=== PATIENT | male | born 1955 | race African-American/Black ===

== ENCOUNTER 2017-09-18 01:57 | Inpatient (IN) | payer OTHER ==
[~2017-09-18] VITALS: Ht 188 cm; Wt 86.2 kg
[2017-09-18] MEDS ORDERED: CELEBREX200 M1 PO (08:15)
[2017-09-18] MEDS ORDERED: SINGULAIR10 M1 PO (08:16)
[2017-09-18] MEDS ORDERED: FLOVENT DISKU100 MCG IH (08:16)
[2017-09-18] MEDS ORDERED: HYDROCHLOROTHIA25 M1 PO (08:17)
--- NOTE | 2017-09-18 11:25 | Admission Core Measures ---
Acute Coronary Syndrome (CM) ACS Core Measures Acute Coronary Syndrome Diagnosis No Congestive Heart Failure (NEW) CHF Core Measures Congestive Heart Failure Diagnosis No Cerebrovascular Accident CVA Core Measures CVA/TIA Diagnosis No Venous Thromboembolism VTE Core Demetri (View Protocol) VTE Risk Factors Surgery No Mechanical VTE Prophylaxis d/t N/A MechProphylax Ordered No VTE Pharm Prophylaxis d/t NA PharmProphylax ordered Problem List As ranked by this Provider includes Assessment & Plan 1. Unilateral primary osteoarthritis, right hip HOME MEDS Home Med List Celecoxib (Celebrex) 200 MG CAPSULE 1 CAP PO BID ARTHRITIS (Reported) Hydrochlorothiazide 25 MG TABLET 1 TAB PO DAILY HYPERTENSION (Reported) Montelukast Sodium (Singulair) 10 MG TABLET 1 TAB PO DAILY ASTHMA (Reported)
[2017-09-18] MEDS ORDERED: COLACE100 M1 PO (11:27)
[2017-09-18] MEDS ORDERED: MIRALAX17 G1 PO (11:27)
[2017-09-18] MEDS ORDERED: PRILOSEC OTC20 M1 PO (11:27)
[2017-09-18] MEDS ORDERED: ASPIRIN EC81 M1 PO (11:27)
[2017-09-18] MEDS ORDERED: INDOMETHACIN25 M1 PO (11:27)
[2017-09-18] MEDS ORDERED: DILAUDID2 M1 PO (11:27)
--- NOTE | 2017-09-18 11:30 | Patient Discharge Instructions ---
Discharge Instructions General Discharge Information You were seen/treated for: Right hip pain related to unilateral primary osteoarthritis You had these procedures: Right total hip replacement Watch for these problems: Increasing pain despite the use of pain medication Increasing redness, warmth or swelling Drainage of any type from incision Inability to bear weight on operative leg Persistent nausea and vomiting Fever greater than 101.5 degrees Do not soak the wound: Yes No bath, but you may shower: Yes Other wound care: Please keep wound clean and dry. No ointments or lotions of any type on or near incision at any time. No exceptions. Your dressing will be changed by your nurse on the second day after your surgery. Daily dry dressing changes are recommended each day thereafter. Do not soak your wound in a bath at any time until otherwise indicated by your surgeon. You may shower, please dry wound immediately after shower with a clean towel. Special Instructions: Aspirin: You are taking this medication to help prevent blood clot formation. Please take with food to protect your stomach lining. Please take as directed. Constipation: Pain medication can cause constipation. Dr. Cortes has recommended that you take Colace and miralax each day. You may discontinue this medication if you develop loose stool or diarrhea. If you wish to continue this medication, it is available over the counter. If you are unable to move your bowels after several days, if you are unable to pass gas and are developing bloating, nausea, or vomiting as a result, please contact your doctor. Diet Continue normal diet: Yes Recommended Diet: Regular Activity Full Activity/No Limits: No Activity Self Limited: Yes Pounds, do NOT lift more than: 10 Acute Coronary Syndrome Inclusion Criteria At DC or during hospital stay patient has or had the following: ACS DIAGNOSIS No Discharge Core Measures Meds if any: Prescribed or Continued at Discharge Meds if any: NOT Prescribed or Continued at Discharge Congestive Heart Failure Inclusion Criteria At DC or during hospital stay patient has or had the following: CHF DIAGNOSIS No Discharge Core Measures Meds if any: Prescribed or Continued at Discharge Meds if any: NOT Prescribed or Continued at Discharge Cerebrovascular accident Inclusion Criteria At DC or during hospital stay patient has or had the following: CVA/TIA Diagnosis No Discharge Core Measures Meds if any: Prescribed or Continued at Discharge Meds if any: NOT Prescribed or Continued at Discharge Venous thromboembolism Inclusion Criteria VTE Diagnosis No VTE Type NONE VTE Confirmed by (Test) NONE Discharge Core Measures - Per Current guidelines, there needs to be overlap - treatment for the first 5 days of Warfarin therapy. - If discharged on Warfarin prior to 5 days of - overlap therapy, the patient will need to be - assessed for post discharge needs including - *Post discharge parental anticoagulation - *Warfarin and/or parental anticoagulation education - *Follow up date to check INR post discharge At least 5 days overlap therapy as Inpatient No Meds if any: Prescribed or Continued at Discharge Note: Overlap Therapy is Warfarin and Anticoagulant Meds if any: NOT Prescribed or Continued at Discharge
--- NOTE | 2017-09-18 11:32 | Surgical Discharge Summary ---
Visit Information Visit Dates Admission Date: 09/18/17 Discharge Date: 09/20/17 History of Present Illness Chief Complaint: Right hip pain related to unilateral primary osteoarthritis Medical History Isolation History: Standard Surgical History Pertinent Surgical History: non-contributory Review of Systems: See H&P Hospital Course Course Attending Physician: Phan Cortes MD Primary Care Physician: Jo CATALAN,[facility] Hospital Course: Patient was admitted to the hospital for an elective total joint replacement. The procedure was tolerated well and patient was transferred to a general surgical floor. Diet was advanced and tolerated. The patient was evaluated and treated by physical therapy. At the time of hospital discharge, the vital signs were stable, neurovascular status was intact, and pain was controlled with the use of oral pain medications. Complications: nONE Allergies: Coded Allergies: No Known Allergies (09/18/17) Disposition Summary Disposition Principal Diagnosis: Right hip pain related to unilateral primary osteoarthritis Additional Diagnosis: None Discharge Disposition: home health services Discharge Instructions General Discharge Information Code Status: Full Code Patient's Diet: Regular, advance as tolerated Patient's Activity: WBAT Follow-Up Instructions/Appts: Follow up with Dr. Cortes in 6 weeks from date of surgery. Please call office to arrange &/or confirm this appointment. Medications at Discharge Discharge Medications: Stop taking the following medications: Celecoxib (Celebrex) 200 MG CAPSULE ORAL TWICE DAILY Continue taking these medications: Montelukast Sodium (Singulair) 10 MG TABLET 1 Tablet ORAL DAILY Fluticasone Propionate (Flovent Diskus) 100 MCG BLST.W.DEV 1 Inhalation INHALATION Hydrochlorothiazide (Hydrochlorothiazide) 25 MG TABLET 1 Tablet ORAL DAILY Start taking the following new medications: Aspirin (Ecotrin*) 81 MG TABLET.DR 1 Tablet ORAL TWICE DAILY Qty = 60 No Refills Docusate Sodium (Colace) 100 MG CAPSULE 1 Capsule ORAL TWICE DAILY Qty = 14 No Refills Instructions: DISCONTINUE USE IF YOU DEVELOP LOOSE STOOL OR DIARRHEA Polyethylene Glycol 3350 (Miralax) 17 GRAM POWD.PACK 1 Packet ORAL DAILY Qty = 7 No Refills Instructions: dissolve in water, DISCONTINUE USE IF YOU DEVELOP LOOSE STOOL OR DIARRHEA Indomethacin (Indomethacin) 25 MG CAPSULE 1 Capsule ORAL THREE TIMES DAILY Qty = 30 No Refills Instructions: with food Omeprazole Magnesium (Prilosec Otc) 20 MG TABLET.DR 1 Tablet ORAL DAILY Qty = 30 No Refills Hydromorphone HCl (Dilaudid) 2 MG TABLET 1-2 Tablet ORAL EVERY 4-6 HOURS NEEDED as needed for PAIN Qty = 36 No Refills Copies To: Jo CATALAN,Ale Shaikh III
--- NOTE | 2017-09-18 13:42 | RADIOLOGY REPORT ---
EXAMINATION: XR HIP, RIGHT CLINICAL INFORMATION: 2 views right hip. COMPARISON: No relevant prior imaging. TECHNIQUE: Two views of the right hip. FINDINGS: There are expected postoperative changes of a recent right total hip arthroplasty. Hardware is grossly intact and there is no evidence of dislocation. A surgical drain is in place. IMPRESSION: Expected postoperative changes of a right total hip arthroplasty. No dislocation.
[2017-09-18 14:10] VITALS: BP 148/86
--- NOTE | 2017-09-18 14:26 | PN- Orthopedic ---
Subjective Subjective: see student note below Objective Vital Signs and I&Os see student note below Assessment/Plan Assessment/Plan see student note below Core Measures Venous Thromboembolism VTE Risk Factors Surgery No Mechanical VTE Prophylaxis d/t N/A MechProphylax Ordered No VTE Pharm Prophylaxis d/t NA PharmProphylax ordered
[2017-09-18 16:22] VITALS: BP 130/70
--- NOTE | 2017-09-18 16:46 | Operative Report ---
Operative/Inv Procedure Report Surgery Date: 09/18/17 Name of Procedure: Right total hip replacement Pre-Operative Diagnosis: Primary right hip DJD Post-Operative Diagnosis: Same Estimated Blood Loss: 400 Surgeon/Senior Maintenance Machinist: Sebastian CATALAN,Phan Deleon Anesthesia: block Operative/Procedure Note Note: Description of Procedure: The patient was taken to the operating room and positively identified. After induction of spinal anesthesia and administration of appropriate pre-operative antibiotics, the patient was positioned supine on the operating room table and all bony prominences were well padded. After performing a surgical timeout, the right lower extremity was prepped and draped in the usual sterile fashion. A direct anterior approach was made to the right hip. The incision was carried sharply through superficial soft tissues to the level of the fascia. Meticulous hemostasis was maintained with Bovie electocautery. The fascia over the tensor fascia jailyn muscle was opened sharply and the interval between the TFL and the sartorius was entered bluntly taking care to stay lateral to the lateral femoral cutaneous nerve. Retractors were placed around the femoral neck and the pericapsular fat was identified. The ascending branches of the lateral femoral circumflex vessels were identified and carefully coagulated. The pericapsular fat and anterior capsule were then resected. A napkin ring osteotomy was performed and the femoral head was removed without difficulty. Attention was then turned to the acetabulum. After appropriate placement of retractors, the acetabulum was exposed. Soft tissue was cleaned from the acetabular margin and notch. It was noted that there was a tremendous amount of necrotic type material that appeared to be remnants of the femoral head and acetabulum. There was hypertrophic synovium present. And granulation tissue were sent for microbiologic analysis. Overhanging osteophytes were removed and the teardrop was exposed. The acetabulum was quite deformed. The acetabulum was then sequentially reamed to accept a 66 mm Crewe Tritanium hemispherical shell. This was impacted into place in the appropriate position and multiple screws were used for supplemental fixation. It was then fit with a 36 mm Trident X3 zero degree polyethylene insert. Attention was then turned to the femur. After performing the appropriate ligament releases, the proximal femur was exposed. It was then sequentially broached to accept a size 5 Crewe Accolade 2 132 neck angle stem. This was trialed for leg length and stability. The trial component was removed and the final component was impacted into place. The trunnion was carefully cleaned and fit with a 36 mm, +5 Biolox delta ceramic femoral head. The hip was reduced and put through a full range of motion and found to be stable. The articular space was then irrigated with sterile saline. The periarticular soft tissues were infilitrated with Marcaine. The fascial layer was closed with interrupted #1 vicryl suture and the skin was re-approximated with interrupted 2 -0 vicryl. The skin was closed with a running 3-0 V-Lock suture. Steri-strips and a sterile dressing were applied. The patient was awakened and taken to the recovery room in satisfactory condition.
--- NOTE | 2017-09-18 16:51 | PN- Student ---
Zenaida Wilkinsh 09/18/17 1629: Subjective Subjective: POST OP CHECK Pain 6/10 right thigh superior to knee. Improved slightly with morphine administration. Ambulated around unit with PT. Nausea relieved with zofran, no vomiting. No chest pain, no shortness of breath, no calf pain. Has not urinated. No flatus or bowel movements. Objective Objective: Vitals: Temp: 97.6 oral = Tmax=Tcurrent Pulse 69 Respiratory Rate: 18 BP: 130/70 Pulse Ox: 98 on room air I/O's Not recorded Imaging: Hip Xray post op Expected postoperative changes of a right total hip arthroplasty. No dislocation. Labs: None Physical Exam general: no acute distress. alert and oriented to time and place Pulm: clear to auscultation bilaterally Cardio: S1,S2, RRR Abdomen: Softly distended. Positive bowel sounds. non tender. Extremities: 2+ Posterior tibialis and dorsalis pedis pulses right foot. Gross sensation intact. calves soft and non tender bilaterally. ALPS in place. Drain in place with serosanguinous discharge. Dressing intact with minimal serosanguinous discharge. Non tender around dressing. Right thigh non tender. Results Results: Microbiology 09/18 105 TRUNK: Culture & Sensitivity - CAN Cancelled: OE 09/18 105 TRUNK: Gram Stain - CAN Cancelled: OE 09/18 105 TRUNK/O.R.: Culture & Sensitivity - RECD 09/18 1052 TRUNK/O.R.: Gram Stain - RECD Assessment/Plan Assessment: 62 year old male POD 0 s/p total hip replacement. Doing well with some pain from surgery, but has been out of bed with PT. Plan: Weight bearing as tolerated Continue DVT prophylaxis Continue Morphine and or dilaudid and or Acetaminophen for PRN pain Continue Zofran and or phenergan for nausea Continue ABX prophylaxis Continue GI prophylaxis Continue home meds Discuss with preceptor Chikis Cha 09/18/17 9087: Assessment/Plan Plan: Agree w above.
[2017-09-18 17:57] VITALS: BP 136/70
[2017-09-18 20:12] VITALS: BP 136/64
[2017-09-18 21:37] VITALS: BP 124/60
[2017-09-19] VITALS (7 sets, daily range): BP systolic 120–140; BP diastolic 58–80
--- NOTE | 2017-09-19 07:29 | PN- Student ---
Zenaida Wilkinsh 09/19/17 0710: Subjective Subjective: 3/10 improved pain of Right thigh and hip. Pain medication helped. Feels pain if shifting leg. Out of bed with PT yesterday. Urinated 2 x since surgery. No bowel movements, no flatus. No abdominal pain. No nause or vomiting. No chest pain, no shortness of breath, no calf pain. Objective Objective: Vitals: Temp: 98.9 = T max=Tcurrent Pulse: 73 Respiratory: 18 BP: 124/58 Pulse Ox: 95 on room air I's/O's I: 480 oral, 525 IV 24 hours O: 600 urine 24 hours Imaging: None Labs: Pending Physical Exam: general: No acute distress. Alert and oriented to time and place Pulm: clear to auscultation bilaterally Cardio: s1,s2, RRR Abdomen: Soft, non distended. Postive bowel sounds. Non tender Extremities: 2+ dorsalis pedis and posterior tibialis pulses. Gross sensation intact bilaterally. 5+ motor strength with plantar/dorsiflexion bilaterally. Straight leg raise 3+ strength right and 5+ strenght left. hip and thigh non tender. No echymosis around dressing. dressing is intact with minimal serosanguinous discharge. Drain is in place with serosanguinous discharge. calves soft and nontender bilaterally. Assessment/Plan Assessment: 62 year old male POD1 s/p right total hip replacement. Doing well with improved pain in proportion to surgery and has been out of bed with PT. Plan: WBAT Out of bed with PT Morphine, dilaudid, IV acetaminophen PRN pain Zofran, Ondansetron Prn Nausea Indocin as ordered GI prophylaxis Continue home meds Plan for discharge Discuss with preceptor Merlene Leonard 09/19/17 1212: Assessment/Plan Assessment: Agree with student assessment Overnight hemovac output 140 cc, will continue to monitor throughout day, likely dc drain later. Pt c/o chills, has been afebrile, will continue to monitor Activity remains oob, wbat No dc to home today, consider tomorrow Will discuss poc with Dr. Cortes
[2017-09-19 08:26] LABS: ABSOLUTE BASOPHIL COUNT 0 /CUMM (0.0-0.2); ABSOLUTE EOSINOPHIL COUNT 0.1 /CUMM (0.0-0.7); ABSOLUTE LYMPH COUNT 0.7 /CUMM (1.2-3.4); ABSOLUTE MONOCYTE COUNT 0.6 /CUMM (0.10-0.60); BASOPHIL % 0.7 % (0.0-2.0); EOSINOPHIL % 2.1 % (0-5); GRANULOCYTE % 73.1 % (42.2-75.2); HEMATOCRIT 32.4 % (42-52); MEAN CORPUSCULAR HGB 28.6 PG (27.0-31.0); MEAN CORPUSCULAR VOLUME 86.9 FL (80.0-94.0); PLATELET COUNT 238 /CUMM (130-400); RBC DISTRIBUTION WIDTH 13.7 % (11.5-14.5); RED BLOOD CELL CT 3.73 /CUMM (4.70-6.10); WHITE BLOOD CELL COUNT 5.5 /CUMM (4.8-10.8)
[2017-09-20 06:58] VITALS: BP 118/70
--- NOTE | 2017-09-20 07:19 | PN- Student ---
Jsoue Wilkins 09/20/17 0703: Subjective Subjective: Right hip discomfort with movement. No pain at rest. Ambulated with PT yesterday. Passed flatus and had bowel movement. urinates frequently. No nausea, no vomiting. No chest pain, no shortness of breath, no calf pain. Complained of chills. Objective Objective: Vitals: Temp; 99.4 oral Pulse: 70 Respiratory: 18 BP: 118/70 Pulse Ox: 95 room air I/O's I: 220 oral 8hrs/ 760 oral 24hrs O: 20 drainage 8hrs/ 240 drainage 24hrs 0 urine 8hrs/1650 urine 24hrs Imaging: None Results Results: Laboratory Tests 09/19/17 0635: Anion Gap 7, Estimated GFR > 60, BUN/Creatinine Ratio 21.7, CBC w Diff NO MAN DIFF REQ, RBC 3.73 L, MCV 86.9, MCH 28.6, MCHC 33.0, RDW 13.7, MPV 8.0, Gran % 73.1, Lymphocytes % 12.6 L, Monocytes % 11.5 H, Eosinophils % 2.1, Basophils % 0.7, Absolute Granulocytes 4.0, Absolute Lymphocytes 0.7 L, Absolute Monocytes 0.6, Absolute Eosinophils 0.1, Absolute Basophils 0 Microbiology 09/18 1053 TRUNK: Culture & Sensitivity - CAN Cancelled: OE 09/18 1053 TRUNK: Gram Stain - CAN Cancelled: OE 09/18 1053 TRUNK/O.R.: Culture & Sensitivity - RES 09/18 1053 TRUNK/O.R.: Gram Stain - RES Assessment/Plan Assessment: 62 year old male POD2 s/p right total hip replacement. Doing well and out of bed with PT with reduced pain. Drain was pulled yesterday PM and dressing changed this AM. Plan: WBAT Out of bed with PT Morphine, dilaudid, acetaminophen PRN pain Zofran, ondansetron prn nausea GI prophylaxis Continue home meds Plan for discharge Discuss with preceptor Kamila Colin 09/20/17 3729: Assessment/Plan Plan: agree with above TOMER note dressing changed try milk of mag this morning continue PT. needs to clear 13 stairs for home (per pt) continue asa/indocin - dvt ppx d/c home with hhx today vs tomorrow pending him clearing stairs will d/w
[2017-09-20 08:23] LABS: ABSOLUTE BASOPHIL COUNT 0 /CUMM (0.0-0.2); ABSOLUTE EOSINOPHIL COUNT 0.2 /CUMM (0.0-0.7); ABSOLUTE GRANULOCYTE CT 4.4 /CUMM (1.4-6.5); ABSOLUTE MONOCYTE COUNT 0.8 /CUMM (0.10-0.60); BASOPHIL % 0.5 % (0.0-2.0); EOSINOPHIL % 2.4 % (0-5); GRANULOCYTE % 68.9 % (42.2-75.2); HEMATOCRIT 32.2 % (42-52); MEAN CORPUSCULAR HGB 29.2 PG (27.0-31.0); MEAN CORPUSCULAR HGB CONC 34.2 G/DL (33.0-37.0); MEAN CORPUSCULAR VOLUME 85.3 FL (80.0-94.0); MEAN PLATELET VOLUME 8.1 FL (7.4-10.4); PLATELET COUNT 240 /CUMM (130-400); RBC DISTRIBUTION WIDTH 13.3 % (11.5-14.5); RED BLOOD CELL CT 3.78 /CUMM (4.70-6.10); WHITE BLOOD CELL COUNT 6.4 /CUMM (4.8-10.8)
[2017-09-20 14:50] VITALS: BP 122/64
== END 2017-09-20 16:10 | disposition home health service (06) | DRG 470 ==
LOC: SDA 01:57 → ENRESERV 12:48 → ENTRNSPT 13:54 → EDTRNSPTSTS 13:55 → EDTRNSPT 14:01 → 2NA 14:05 → CMPTRNSPT 14:23 → ENPENDDIS 09-20 11:05 → 2NA 09-20 16:10
PROVIDERS: Nurse Practitioner
PROC: 0SR904A Replacement of Right Hip Joint with Ceramic on Polyethylene Synthetic Substitute, Uncemented, Open Approach (ICD-10-PCS; principal; 2017-09-18)
DX: M16.11 Unilateral primary osteoarthritis, right hip (principal); J45.40 Moderate persistent asthma, uncomplicated; Z79.51 Long term (current) use of inhaled steroids; E66.3 Overweight; Z68.25 Body mass index [BMI] 25.0-25.9, adult; K11.20 Sialoadenitis, unspecified; R97.20 Elevated prostate specific antigen [PSA]
CPT/HCPCS: 2NASP; 87070; 87075; 36592; 73502-RT; 82436; 97110-GO; 97116-GO; 97161-GP; J0131; J0690; J0735; J2405; J2550; J3490; J7042